=== PATIENT | male | born 1960 | race Caucasian/White ===

== ENCOUNTER 2017-04-25 08:01 | Emergency (ER) | payer BC ==
[~2017-04-25] VITALS: Ht 167.6 cm; Wt 89.3 kg
[2017-04-25 08:11] VITALS: TEMP 36.8; Ht 167.6 cm; Wt 89.3 kg
[2017-04-25] MEDS ORDERED: CYCLOBENZAPRINE HCL 10 MG TAB PO STA (08:13)
[2017-04-25] MEDS ORDERED: KETOROLAC TROMETHAMINE 60 MG/2 ML VIAL IM STA (08:13)
[2017-04-25] MEDS ORDERED: CYCL10TA6 PO (08:48)
[2017-04-25] MEDS ORDERED: TRAM-10 PO (08:48)
--- NOTE | 2017-04-25 08:49 | EMERGENCY ROOM VISIT NOTE ---
History Report prepared by [place]: Yanci Swanson Under the Supervision of: Dr. Tunde Brand D.O. First contact with patient: 08:06 Chief Complaint: BACK PAIN Stated Complaint: BACK History of Present Illness The patient is a 56 year old male who presents to the Emergency Room with complaints of constant back pain for the past 6 days. His pain began after he was cutting firewood. He reports left lower back pain that he rates as an 8/10 in severity. Movement exacerbates his pain. He has been taking ibuprofen for his symptoms. The patient denies nausea, vomiting, abdominal pain, urinary symptoms, incontinence, and weakness in his legs. Source of History: patient Onset: 6 days ago Position: back (lower) Symptom Intensity: 8/10 Timing: constant Modifying Factors (Worsening): movement Modifying Factors (Relieving): ibuprofen Associated Symptoms: No nausea, No vomiting, No abdominal pain, No urinary symptoms, No weakness Review of Systems See HPI for pertinent positives & negatives. A total of 10 systems reviewed and were otherwise negative. Past Medical & Surgical Medical Problems: (1) CARPAL TUNNEL SYNDROME (2) No Known Active Medical Problems Family History No pertinent history stated. Social History Marital Status: Housing Status: lives with significant other Occupation Status: employed Current/Historical Medications Scheduled Cyclobenzaprine Hcl (Flexeril), 1 TAB PO TID Scheduled PRN Tramadol (Ultram), 100 MG PO Q4H PRN for Pain Miscellaneous Medications Ibuprofen (Ibuprofen) Allergies Coded Allergies: No Known Allergies (Unverified , 04/25/17) Physical Exam Vital Signs Date Time Temp Pulse Resp B/P (MAP) Pulse Ox O2 Delivery O2 Flow Rate FiO2 04/25/17 09:23 88 16 143/74 96 04/25/17 08:11 36.8 90 18 147/75 96 Room Air Physical Exam CONSTITUTIONAL/VITAL SIGNS: Reviewed / noted above. GENERAL: Non-toxic in appearance. INTEGUMENTARY: Warm, dry, and [place]. HEAD: Normocephalic. EYES: without scleral icterus or trauma. ENT/OROPHARYNX: clear and moist. LYMPHADENOPATHY/NECK: Is supple without lymphadenopathy or meningismus. RESPIRATORY: Lungs clear and equal. CARDIOVASCULAR: Regular rate and rhythm. GI/ABDOMEN: Soft and nontender. No organomegaly or pulsatile mass. No rebound or guarding. Normal bowel sounds. EXTREMITIES: Warm and well perfused. BACK: No CVA tenderness. TTP of left lower back musculature. NEUROLOGICAL: Intact without focal deficits. PSYCHIATRIC: normal affect. MUSCULOSKELETAL: Normally developed with good muscle tone. Medical Decision & Procedures ER Provider Diagnostic Interpretation: Radiology results as stated below per my review and radiologist interpretation: LUMBAR SPINE 5 VIEWS HISTORY: low left back pain muscular COMPARISON: None. FINDINGS: There is no fracture. No subluxation. Disc spaces are preserved. The sacrum is intact. Tiny marginal osteophytes at L3 and L4. Mild degenerative changes within the lower facets. IMPRESSION: No fracture or subluxation within the lumbar spine. Mild degenerative changes within the lumbar spine. Electronically signed by: Raymond Loya M.D. 04/25/2017 8:49 AM Dictated Date/Time: 04/25/2017 8:47 AM Medications Administered Medications (Trade) Dose Ordered Sig/Leatha Route Start Time Stop Time Status Last Admin Dose Admin Ketorolac Tromethamine (Toradol Inj) 60 mg NOW STAT IM 04/25/17 08:13 04/25/17 08:15 DC 04/25/17 08:19 60 MG Cyclobenzaprine HCl (Flexeril Tab) 10 mg NOW STAT PO 04/25/17 08:13 04/25/17 08:15 DC 04/25/17 08:19 10 MG ED Course 0806: Previous medical records were reviewed. The patient was evaluated in room A2. A complete history and physical examination was performed. 0813: Flexeril 10 mg PO, Toradol 60 mg IM 0854: I reassessed the patient at this time. He is feeling better and resting comfortably. I discussed the results and treatment plan with the patient. I answered all pertaining questions that he had. He expressed understanding and verbalized agreement. The patient will be discharged home. Medical Decision Differential diagnosis: Etiologies such as musculoskeletal, disc herniation, fracture, aortic disease, metastatic disease, cord compression, discitis, infection, renal colic, gastrointestinal, acute exacerbation of chronic back pain, sciatica, cauda equina, as well as others were entertained. This is a 56-year-old male who presents to the ED with a chief complaint of low back pain. The patient states that his symptoms started after cutting wood. The patient states that this occurred about one week ago. His pain is mostly on the left-hand side. It is mostly in the muscular region the lumbar area. The patient denies any bowel or bladder dysfunction. Denies any numbness or tingling in his legs. X-rays did not reveal any acute abnormalities. The patient was treated with Toradol IM and Flexeril by mouth. He will be discharged on Ultram and Flexeril. He is felt to be stable for discharge and outpatient follow-up. Did recommend following up with PCP for possible PT referral. Medication Reconcilliation Current Medication List: was personally reviewed by me Blood Pressure Screening Patient's blood pressure: Elevated blood pressure Blood pressure disposition: Elevated BP felt to be situational Impression Primary Impression: Strain of lumbar region Scribe Attestation The scribe's documentation has been prepared under my direction and personally reviewed by me in its entirety. I confirm that the note above accurately reflects all work, treatment, procedures, and medical decision making performed by me. Departure Information Dispostion Home / Self-Care Prescriptions Cyclobenzaprine Hcl (FLEXERIL) 10 Mg Tab 1 TAB PO TID for 10 Days, #30 TAB Prov: Tunde Brand D.O. 04/25/17 Tramadol (Ultram) 50 Mg Tab 100 MG PO Q4H Y for Pain, #30 TAB Prov: Tunde Brand D.O. 04/25/17 Referrals Shun Pelayo M.D. (PCP) Forms HOME CARE DOCUMENTATION FORM, IMPORTANT VISIT INFORMATION Patient Instructions ED Low Back Pain Injury, Exercises Back Lower Back Stretch, My [facility] Additional Instructions Ultram and Flexeril as prescribed for pain and muscle relaxation. Follow-up with your doctor for physical therapy referral. Follow-up with your doctor for further care and evaluation in 1-2 days. Return to the emergency department for worsening or new symptoms or any concerns. You have been examined and treated today on an emergency basis only. This is not a substitute for, or an effort to provide, complete comprehensive medical care. It is impossible to recognize and treat all injuries or illnesses in a single emergency department visit. It is therefore important that you follow up closely with your doctor. Call as soon as possible for an appointment.
[2017-04-25] MEDS ORDERED: MTR800 (09:07)
[2017-04-25 09:23] VITALS: BP 143/74; PULSE 88; O2SAT 96
== END 2017-04-25 09:24 | disposition home or self-care (01) ==
LOC: C.EDB 08:02 → C.EDA 09:24
DX: S39.012A Strain of muscle, fascia and tendon of lower back, initial encounter (principal); X58.XXXA Exposure to other specified factors, initial encounter